=== PATIENT | male | born 1945 | race Caucasian/White ===

== ENCOUNTER 2018-08-23 00:56 | Emergency (ER) | payer MEDICARE, BC ==
[~2018-08-23] VITALS: Ht 172.7 cm; Wt 81.8 kg
[2018-08-23 01:02] VITALS: Ht 172.7 cm; Wt 81.8 kg
[2018-08-23 01:29] LABS: BASOPHILS 0.5 % (0-2); EOSINOPHILS 4.2 % (0-7); HEMATOCRIT 40.7 % (42.0-54.0); IMMATURE GRANULOCYTES 0.7 % (0-5); LYMPHOCYTES 30.2 % (15-50); MCH 30.7 pg (26.0-34.0); MCHC 34.4 g/dL (31.0-37.0); MCV 89.3 fL (80.0-100.0); MEAN PLATELET VOLUME 9.6 fL (7.4-10.4); MONOCYTES 10.2 % (2-11); NEUTROPHILS 54.2 % (40-80); PLATELET COUNT 140 10x3/uL (130-400); RBC 4.56 10x6/uL (4.20-6.10); RDW 13.8 % (11.5-14.5); WBC 4.3 10x3/uL (4.8-10.8)
[2018-08-23 01:38] LABS: APTT 30.2 SECONDS (22.8-39.4); INR 1.03 (0.85-1.17)
[2018-08-23 01:43] LABS: ALBUMIN 3.1 g/dL (3.4-5.0); ALKALINE PHOSPHATASE 80 U/L (46-116); ALT (SGPT) 24 U/L (10-68); BILIRUBIN - TOTAL 0.41 mg/dL (0.2-1.3); CALC OSMOLALITY 288 mosm/kg (275-300); CALCIUM 8.9 mg/dL (8.5-10.1); CARBON DIOXIDE 27.3 mmol/L (21.0-32.0); CHLORIDE - SERUM 106 mmol/L (98-107); CREATININE - SERUM 1.4 mg/dL (0.6-1.3); GLUCOSE 147 mg/dL (74-106); PROTEIN - SERUM 6.5 g/dL (6.4-8.2); SODIUM 142 mmol/L (136-145); UREA NITROGEN 22 mg/dL (7-18); eGFR NON AFRICAN AMERICAN 53 mL/min (90-120)
[2018-08-23 01:52] LABS: CREATINE KINASE 56 UL (21-232); TROPONIN-I 0.025 ng/mL (0.000-0.060)
[2018-08-23] MEDS ORDERED: NITROSTAT0.4 MG SL (02:00)
[2018-08-23 02:23] VITALS: BP 174/79
== END 2018-08-23 02:26 | disposition home or self-care (01) ==
LOC: D.ER 00:56
PROVIDERS: Emergency Medicine
DX: R07.9 Chest pain, unspecified (principal); I45.10 Unspecified right bundle-branch block